=== PATIENT | male | born 1955 | race Caucasian/White ===

== ENCOUNTER 2020-04-24 00:13 | Emergency (ER) | payer SELFPAY ==
--- NOTE | 2020-04-24 01:21 | EDM.PDOC ---
ED HPI GENERAL MEDICAL PROBLEM - General Chief Complaint: Cardiovascular Problem Stated Complaint: [facility] Time Seen by Provider: 04/24/20 00:25 Source of Information: Reports: Patient History Limitations: Reports: No Limitations - History of Present Illness INITIAL COMMENTS - FREE TEXT/NARRATIVE: 65-year-old male who is in [facility] detox over the past 4 days, has not had any alcohol in the past 6 months. It sounds like this was court mandated. Has been complaining of some intermittent left-sided chest discomfort all day, hurts to move a certain way or take a deep breath. No cough or shortness of breath. Apparently he has a history of coronary artery disease as well as a family history so they wanted him checked. He was still having some discomfort when the ambulance picked him up, seemed to augustin after nitro and aspirin but his EKG is normal. Onset: Unknown/Unsure Duration: Waxing/Waning (Waxing and waning for the last 12 hours) Location: Reports: Chest (Left anterior chest) Worsens with: Reports: Breathing, Movement Associated Symptoms: Reports: No Other Symptoms (No shortness of breath, diaphoresis, nausea vomiting or other symptom) Treatments [employer]: Reports: See EMS Report - Related Data Allergies Allergy/AdvReac Type Severity Reaction Status Date / Time naproxen Allergy Other Verified 04/24/20 00:24 antidepressant unknown Allergy Other Uncoded 04/24/20 00:24 Home Meds: Home Meds Aspirin [Halfprin] 81 mg PO DAILY 04/24/20 [History] Calcium Carbonate [Tums] 2 tab PO ASDIRECTED PRN 04/24/20 [History] Cholecalciferol (Vitamin D3) [Vitamin D3] 25 mcg PO DAILY 04/24/20 [History] Ibuprofen 800 mg PO BID PRN 04/24/20 [History] Inulin [Fiber Gummies] 2 tab PO DAILY 04/24/20 [History] Loratadine [Claritin] 10 mg PO DAILY 04/24/20 [History] cloNIDine HCL [Clonidine HCl] 0.1 mg PO ASDIRECTED PRN 04/24/20 [History] Past Medical History HEENT History: Reports: Impaired Vision, Sinusitis Cardiovascular History: Reports: Arrhythmia, Heart Murmur, Syncope Respiratory History: Reports: Asthma Gastrointestinal History: Reports: GERD Other Gastrointestinal History: ulcer Musculoskeletal History: Reports: Back Pain, Chronic, Fracture Neurological History: Reports: Concussion, Head Trauma, Migraines Psychiatric History: Reports: Addiction, Anxiety, Depression, Other (See Below) Other Psychiatric History: intermittent explosive disorder - Infectious Disease History Infectious Disease History: Reports: Chicken Pox, Influenza, Measles, Mumps - Past Surgical History GI Surgical History: Reports: EGD Musculoskeletal Surgical History: Reports: Other (See Below) Other Musculoskeletal Surgeries/Procedures:: ankles fused, Social & Family History - Tobacco Use Tobacco Use Status *Q: Current Every Day Tobacco User Years of Tobacco use: 55 Packs/Tins Daily: 0.4 - Caffeine Use Caffeine Use: Reports: Coffee - Alcohol Use Date of Last Drink: 10/08/19 - Recreational Drug Use Recreational Drug Use: Yes Recreational Drug Type: Reports: Marijuana/Hashish Recreational Drug Use Frequency: Daily ED ROS GENERAL - Review of Systems Review Of Systems: See Below Constitutional: Denies: Fever, Chills Respiratory: Denies: Shortness of Breath Cardiovascular: Reports: Chest Pain GI/Abdominal: Denies: Abdominal Pain, Nausea, Vomiting Skin: Reports: No Symptoms Neurological: Reports: No Symptoms Psychiatric: Reports: No Symptoms ED EXAM, GENERAL - Physical Exam Exam: See Below Exam Limited By: No Limitations General Appearance: Alert, No Apparent Distress Head: Atraumatic Respiratory/Chest: No Respiratory Distress, Lungs Clear, Other (I can reproduce some chest pain with palpation of the left anterior chest wall) Cardiovascular: Regular Rate, Rhythm GI/Abdominal: Soft, Non-Tender Extremities: Normal Inspection Neurological: Alert, Oriented Psychiatric: Normal Affect, Normal Mood #1 Interpretation Rhythm: NSR (EKG done by EMS was reviewed and shows normal sinus rhythm, no ST changes) Course - Vital Signs Last Recorded V/S: Last Vital Signs Temp 96.2 F L 04/24/20 00:41 Pulse 74 04/24/20 00:41 Resp 16 04/24/20 00:41 BP 153/112 H 04/24/20 00:41 Pulse Ox 94 L 04/24/20 00:41 - Orders/Labs/Meds Labs: Laboratory Tests 04/24/20 Range/Units 00:40 Troponin I < 0.017 (0.000-0.056) ng/mL - Re-Assessments/Exams Free Text/Narrative Re-Assessment/Exam: 04/24/20 01:20 Troponin was drawn which was 0, patient was discharged with chest wall pain. Departure - Departure Time of Disposition: 02:41 Disposition: Home, Self-Care 01 Clinical Impression: Left-sided chest wall pain Instructions: Chest Wall Pain, [id number] Referrals: Curry Law Sr, MD [Primary Care Provider] - Forms: ED Department Discharge Care Plan Goals: Tylenol or ibuprofen may be helpful, a heating pad to the sore area would be reasonable if it is persistent over the next few days. Return if worsening or concerns. Sepsis Event Note (ED) - Evaluation Sepsis Screening Result: No Definite Risk - Focused Exam Vital Signs: Vital Signs Temp Pulse Resp BP Pulse Ox 04/24/20 00:41 96.2 F L 74 16 153/112 H 94 L 04/24/20 00:22 96.2 F L 74 16 153/112 H 94 L
== END 2020-04-24 02:42 | disposition home or self-care (01) ==
LOC: JP.ED 00:13
DX: R07.89 Other chest pain (principal); J45.909 Unspecified asthma, uncomplicated; I25.10 Atherosclerotic heart disease of native coronary artery without angina pectoris; Z72.0 Tobacco use; Z88.8 Allergy status to other drugs, medicaments and biological substances; Z79.82 Long term (current) use of aspirin; Z79.899 Other long term (current) drug therapy
CPT/HCPCS: 36415; 84484; 99285-25